=== PATIENT | female | born 1980 | race Caucasian/White ===

== ENCOUNTER 2017-12-11 06:34 | Emergency (ER) | payer MEDICAID ==
[2017-12-11 06:39] VITALS: TEMP 98.1; O2SAT 97
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
[2017-12-11] MEDS ORDERED: ACETAMINOPHEN 500 MG TAB PO ONE (07:57)
[2017-12-11] MEDS ORDERED: CEPHALEXIN 500 MG CAP PO ONE (08:00)
[2017-12-11] MEDS ORDERED: TDAP ADULT 0.5 ML INJ (BOOSTRIX) IM ONE (08:02)
[2017-12-11 08:38] VITALS: BP 147/111; PULSE 105; RESP 18
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
== END 2017-12-11 08:41 | disposition home or self-care (01) ==
PROC: 0HQHXZZ Repair Right Upper Leg Skin, External Approach (ICD-10-PCS; principal; 2017-12-11)
DX: S71.111A Laceration without foreign body, right thigh, initial encounter (principal); F17.200 Nicotine dependence, unspecified, uncomplicated; W26.0XXA Contact with knife, initial encounter; Y92.89 Other specified places as the place of occurrence of the external cause; Y93.01 Activity, walking, marching and hiking

== ENCOUNTER 2018-07-25 12:45 | Emergency (ER) | payer MEDICAID, OTHER ==
[2018-07-25 12:51] VITALS: BP 112/77
--- NOTE | 2018-07-25 12:51 | EDPHY ---
H & P Time Seen by Provider: 07/25/18 12:50 HPI/ROS: CHIEF COMPLAINT: Suspected alcohol abuse HISTORY OF PRESENT ILLNESS: 38 year old female arrives via ambulance for suspected alcohol abuse. Patient unable to ambulate without assistance. Admits to positive heavy alcohol use, specifically whiskey. No reports of trauma or assault. No fall from height. No structures of height near patient. No suicidal homicidal ideation. Not [facility] hold REVIEW OF SYSTEMS: 10 systems reviewed and negative with the exception of the elements mentioned in the history of present illness PAST MEDICAL/SURGICAL HISTORY: no anticoagulant use, no relevant medical/ surgical history SOCIAL HISTORY: Positive for witnessed and self disclosed alcohol use PHYSICAL EXAM 1) GENERAL: Well-developed, well-nourished, alert and oriented. Appears to be in no acute distress. Answering questions appropriately.Smells of alcohol. 2) HEAD: Normocephalic, atraumatic 3) HEENT: Pupils equal, round, reactive to light bilaterally. Negative Horners. Nasopharynx, oropharynx, clear. No deformity or angulation of nose. No septal hematoma. No rhinorrhea. No oral trauma. Ears bilaterally with normal tympanic membranes. No hemotympanum. No fluid or blood in the external auditory canal. No raccoon eyes. No Astorga sign. Teeth are normally aligned with no gross malocclusion, TMJ bilaterally nontender, facial bones nontender including the zygomatic arch, maxilla mandible. 4) NECK: No cervical collar is on. Posterior cervical spine is nontender, no stepoff, no effusion. Full range of motion which does not elicit any midline cervical spine pain, no posterior midline tenderness, no step-off. 5) LUNGS: Clear to auscultation bilaterally, no wheezes, no rhonchi, no retractions. No obvious signs of trauma. No chest wall pain. No flaring, no grunting. Moving symmetrically. No crepitus. 6) HEART: Regular rate and rhythm, 7) ABDOMEN: No guarding, no rebound, no focal tenderness, no peritoneal signs, no signs of trauma, no ecchymosis 8) MUSCULOSKELETAL: Moving all extremities, no focal areas of tenderness, no obvious trauma. 9) BACK: No midline vertebral tenderness, no fluctuance, no step-off, no obvious trauma, no visual or palpable abnormality. 10) SKIN: No laceration. No abrasion DIFFERENTIAL DIAGNOSIS: In no particular orderincluding but not limited to hypoglycemia, infectious process, electrolyte abnormality, head injury and intoxicants. - Medical/Surgical History Hx Asthma: No Hx Chronic Respiratory Disease: No Hx Diabetes: No Hx Cardiac Disease: No Hx Renal Disease: No Hx Cirrhosis: No Hx Alcoholism: No Hx HIV/AIDS: No Hx Splenectomy or Spleen Trauma: No Other PMH: seizures, hysterectomy. umbilical hernia repair w/mesh April 2014. chronic pain since hernia repair. sciatica - Social History Smoking Status: Current every day smoker Constitutional: Initial Vital Signs Temperature (C) 36.7 C 07/25/18 12:49 Heart Rate 84 07/25/18 12:49 Respiratory Rate 16 07/25/18 12:49 Blood Pressure 112/77 07/25/18 12:49 O2 Sat (%) 95 07/25/18 12:49 O2 Delivery Mode Room Air Allergies/Adverse Reactions: amoxicillin [Amoxicillin] Allergy (Intermediate, Verified 05/30/16 20:29) Sulfa (Sulfonamide Antibiotics) Allergy (Intermediate, Verified 05/30/16 20:29) Hives ibuprofen Allergy (Verified 05/30/16 21:39) Abdominal Pain Home Medications: Medication Instructions Recorded Gabapentin [Neurontin] 300 mg PO TID 05/18/11 Dilantin 400 11/23/12 oxyCODONE/APAP 5/325 [Percocet 1 tab PO Q4-6PRN PRN #10 tab 06/08/13 5/325 (*)] Baclofen 04/18/14 Docusate Sodium [Colace 100 MG (*)] 100 mg PO TID #20 cap 04/19/14 Ondansetron Odt [Zofran Odt] 4 mg PO Q4PRN PRN #10 tab 01/15/15 Oxycodone HCl/Acetaminophen 1 each PO Q6 PRN #15 tablet 01/15/15 [Oxycodone-Acetaminophen 10-325] Cephalexin [Keflex (*)] 500 mg PO QID 7 Days cap 12/11/17 Medical Decision Making ED Course/Re-evaluation: 1 p.m.: Patient does not want to [facility]. She is not [facility] hold. She will be a observed in the ER, allowed d to sober until further evaluation possible. I saw this patient independently based on established practice protocols. Care of patient under supervision of secondary supervising physician Dr Jarvis . 3:50 p.m. patient is awake alert oriented observed ambulating in the ER. Have offered to send patient to the [facility] which she declines. The patient became progressively more aggressive, yelling, cursing emergency department, had to be escorted by security from the emergency department. - Data Points Medications Given: Discontinued Medications Chlordiazepoxide (Librium 25 Mg Prepack#6) [address] [facility] EDNOW ONE Stop: 07/25/18 15:55 Last Admin: 07/25/18 16:05 Dose: Not Given Departure - Departure Disposition: Home, Routine, Self-Care Clinical Impression: Alcohol abuse Condition: Good Instructions: Chlordiazepoxide (By mouth), Abuse of Alcohol (ED) Additional Instructions: Please consider long-term sobriety from alcohol Referrals: [facility] [Outside] - As per Instructions
[2018-07-25] MEDS ORDERED: CHLORDIAZEPOXIDE 25MG PREPK#6 BTL TAKEHOME ONE (15:54)
--- NOTE | 2018-07-25 16:39 | ASMTCMCOM ---
CM Note CM Note Notes: Patient ready for discharge and has refused ride to the [facility] (see ER report). Patient's 2 daughters are at her bedside and are supportive, but with reasonable boundaries and are not willing to take patient with them. They would both like to see patient go to the [facility] for detox and I have again offered to get patient over there, but she refuses. Nell, patient's youngest daughter is 16 and lives in foster care. Heide, patient's other daughter is 21. They both assure me that they have safe living situations and have been aware of patient's escalating substance abuse issues for many years. The two girls are accompanied by the patient's identical twin sister Fadia who is sober and supportive. Patient was ultimately escorted out of ER by security while patient's daughters, twin sister, and friend stand by out of sight. Per family, patient has several warrants for her arrest in [place] and [facility]. They have decided to contact the [place] police and request a welfare check for patient, as well as inform the [employer] of her pending warrants. Date Signed: 07/25/2018 04:38 PM Electronically Signed By:Rosa Hammer RN
== END 2018-07-25 16:07 | disposition home or self-care (01) ==
LOC: EDUNIT#
DX: F10.10 Alcohol abuse, uncomplicated (principal); F17.200 Nicotine dependence, unspecified, uncomplicated